=== PATIENT | male | born 1975 | race Caucasian/White ===

== ENCOUNTER 2017-04-17 11:47 | Day surgery (SDC) | payer OTHER ==
[2017-04-17] MEDS ORDERED: PROPOFOL 40 ML (13:07)
[2017-04-17] MEDS ORDERED: LIDOCAINE 2% (SDV) 5 ML INJ (13:07)
== END 2017-04-17 18:08 | disposition home or self-care (01) ==
LOC: GIL 11:47
DX: K29.60 Other gastritis without bleeding (principal); K29.80 Duodenitis without bleeding; E11.9 Type 2 diabetes mellitus without complications; I10 Essential (primary) hypertension
CPT/HCPCS: 43239; 82962; 87081

== ENCOUNTER 2018-12-23 17:31 | Inpatient (IN) | payer MEDICAID, OTHER ==
[2018-12-23] MEDS: IBUPROFEN 600 MG TAB PO (19:05)
[2018-12-23] MEDS: morphine 2 MG INJ IV ×2 (19:29→22:32)
[2018-12-23] MEDS: ONDANSETRON 4 MG INJ IV (19:29)
[2018-12-23] MEDS ORDERED: NACL 0.9% 3 ML SYG IV (22:30)
[2018-12-23] MEDS ORDERED: BISACODYL (EC) 5 MG TAB PO (22:30)
[2018-12-23] MEDS ORDERED: ONDANSETRON 4 MG INJ IV (22:30)
[2018-12-23] MEDS ORDERED: HYDROmorphONE 0.5 MG/0.5 ML SYG IV (22:30)
[2018-12-23] MEDS ORDERED: DOCUSATE SODIUM 100 MG CAP PO (22:30)
[2018-12-23] MEDS ORDERED: ACETAMINOPHEN 325 MG TAB PO (22:30)
[2018-12-23] MEDS: CEFTRIAXONE 1 GM/50 ML (PMX) 50 ML IVPB (23:18)
[2018-12-23] MEDS: SOD CHLORIDE 0.9% 1,000 ML IV (23:23)
[2018-12-23] MEDS: TAMSULOSIN (SR) 0.4 MG CAP PO (23:29)
[2018-12-24] MEDS ORDERED: DEXTROSE 50% 50 ML SYRINGE IV ×2 (03:30)
[2018-12-24] MEDS ORDERED: GLUCOSE GEL 15 GRAM TUBE BUCCAL (03:30)
[2018-12-24] MEDS ORDERED: GLUCAGON 1 MG INJ IM (03:30)
[2018-12-24] MEDS ORDERED: GLUCOSE GEL 15 GRAM TUBE PO ×2 (03:30)
[2018-12-24] MEDS: SOD CHLORIDE 0.9% 1,000 ML IV ×2 (07:33→16:00)
[2018-12-24] MEDS: TAMSULOSIN (SR) 0.4 MG CAP PO (08:42)
[2018-12-24] MEDS: INSULIN ASPART [NOVOLOG] 3 ML PEN SC ×3 (08:44→17:55)
== END 2018-12-24 18:25 | disposition home or self-care (01) | DRG 694 ==
LOC: MS1 22:20 → FTE 17:31
DX: N13.2 Hydronephrosis with renal and ureteral calculous obstruction (principal); E11.9 Type 2 diabetes mellitus without complications; K21.9 Gastro-esophageal reflux disease without esophagitis; E78.5 Hyperlipidemia, unspecified; F41.0 Panic disorder [episodic paroxysmal anxiety]; G47.30 Sleep apnea, unspecified; F41.9 Anxiety disorder, unspecified; J45.909 Unspecified asthma, uncomplicated; Z87.442 Personal history of urinary calculi; Z79.4 Long term (current) use of insulin
CPT/HCPCS: 36415; 74018; 74176; 80048; 80053; 80061; 81001; 82962; 83036; 83735; 84443; 85025; 87040-91; 96374; 96375; 99285-25